=== PATIENT | male | born 1980 | race Caucasian/White ===

== ENCOUNTER 2025-01-24 10:51 | Outpatient (CLI) | payer BC, SELFPAY | END 2025-01-24 10:52 | disposition home or self-care (01) | LOC: AMB 01-27 08:39 | PROVIDERS: PCP Surgery; Visit Provider Family Medicine | DX: R45.851 Suicidal ideations (principal) | CPT/HCPCS: A0425; A0429 ==

== ENCOUNTER 2025-01-24 11:07 | Emergency (ER) | payer BC, SELFPAY ==
--- NOTE | 2025-01-24 11:08 | ED.GENADULT ---
HPI - General Adult General Date Seen: 01/24/25 Chief complaint: Psychiatric Problem/Disorder Stated complaint: ems Time Seen by Provider: 01/24/25 11:08 History of Present Illness HPI narrative: 44 yo M Brought to the ER today by EMS for alcohol intoxication and suicidal ideation. Report from EMS is that he lives here in [place]. He called 911 this morning saying that he was suicidal with a plan to cut his throat with his knife. He also told EMS that he is a long-time alcoholic and that he was drinking overnight ( whiskey). EMS reports that he came with them voluntarily and has been cooperative in route. Stable vital signs. History from the patient is that he has a long history of alcohol abuse. 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 He says he never really had a prolonged period of sobriety. It sounds like he drinks fairly heavily, roughly a bottle of whiskey every day or so. He does have a close relationship with his mother and father, but has no other close friends or family. He lives in [place]. They live in [place]. he says he talks to them, frequently but cannot tell me how often frequently means. he says he does not currently have a job. He had last had a job about 2 years ago. He apparently used to work here at [facility] [employer] and then was fired. He says he actually had a lawsuit against the hospital, but then goes on to say that he has nothing bad say about [facility] [employer]. He says he just feels like he has no direction in his life. He realizes he is 44 years old. He has been thinking about suicide for a while. He has apparently been close to cutting himself with a knife in the past, years ago, but has never actually broken the skin. He has been thinking about suicide with a knife lately, in particular this morning. He denies any other recent self-harm or ingestion. He has not done anything to hurt himself yet but he thought he was going to so he called 911. When I asked him, the specifically, what he was hoping he can get, he says that he just wants help. . When we discussed the potential for inpatient mental health admission he says he is not sure he wants that. When we discussed potential inpatient alcohol treatment, he says he is not sure he wants that either. Ultimately though he is agreeable to stay here in the ER for evaluation on a voluntary basis. He has never been hospitalized for mental health for other reasons. He does not have a counselor or therapist. He does not have a psychiatrist. His primary care provider is Dr. Cloud at the [facility] and he is on medications, including sertraline. I am not able to get from the patient whether not he has been recently taking his meds. Per records from [facility] past medical history includes hypertension, tobacco abuse, GERD. meds include famotidine, Hyzaar, rosuvastatin, sertraline. Patient denies any previous mention of liver trouble or cirrhosis. When I review his lab results it does not look like he has ever had LFTs measured. He did have hepatitis viral serologies that were negative. Related Data Home Medications ?Medication ?Instructions ?Recorded ?Confirmed famotidine 40 mg tablet 40 mg PO DAILY 01/24/25 01/24/25 losartan 100 1 tab PO DAILY 01/24/25 01/24/25 mg-hydrochlorothiazide 25 mg tablet rosuvastatin 20 mg tablet 20 mg PO QPM 01/24/25 01/24/25 sertraline 50 mg tablet 50 mg PO DAILY 01/24/25 01/24/25 Allergies Allergy/AdvReac Type Severity Reaction Status Date / Time No Known Drug Allergies Allergy Verified 01/24/25 11:34 [facility] Social History Smoking Status: Current every day smoker How many standard drinks containing alcohol do you have on a typical day: 10 or more AUDIT-C Alcohol total score: 4 Non-prescribed substance use: denies use Exam Narrative: Exam Narrative: Constitutional: Appears well-developed and well-nourished. Alert. Conversant But speech is mildly slurred and often times he gets off track. He seems to be acting a little bit intoxicated.. Non toxic. HENT: Head: Atraumatic. Nose: Nose normal. Mouth/Throat: Oral mucosa is clear and moist. no trismus. Pharynx normal. Tonsils symmetric. No tonsillar enlargement, erythema, or exudate. Eyes: Conjunctivae normal. EOM normal. Pupils equal, round, and reactive to light. No scleral icterus. Neck: Normal range of motion. Neck supple. No tracheal deviation present. Cardiovascular: Normal rate, regular rhythm. No gallop. No friction rub. No murmur heard. Symmetric radial artery pulses Pulmonary/Chest: Effort normal. No stridor. No respiratory distress. No wheezes. No rales. No rhonchi . No tenderness. Abdominal: Soft. Bowel sounds normal. No distension. No mass. No hepatomegaly.No tenderness. No rebound. No guarding. Musculoskeletal: RUE: Normal range of motion. No tenderness. No deformity LUE: Normal range of motion. No tenderness. No deformity RLE: Normal range of motion. No edema. No tenderness. No deformity LLE: Normal range of motion. No edema. No tenderness. No deformity Neurological: Alert and oriented to person, place, and Date. Normal strength. CN II-VII intact. No sensory deficit. GCS eye subscore is 4. GCS verbal subscore is 5. GCS motor subscore is 6. Normal coordination no focal deficits. Skin: Skin is warm and dry. No rash noted. No pallor. Normal capillary refill. Psychiatric: See HPI. Flat affect. Endorses suicidal ideation with a plan to cut himself with a knife. Endorses longstanding heavy alcohol use. It sounds like his mental health is affecting his quality life since he does not currently have a job and does not have any close friends or family outside of his parents. He has been pretty depressed for a long time, he says. He denies other drugs of recreation. Const: Vital Signs, click to edit/add: Vital Signs - 24 hr 01/24/25 11:30 Temperature 98.1 F Pulse Rate [Pulse Oximeter] 94 Respiratory Rate 18 Blood Pressure [Ri ght Upper Arm] 150/105 H Pulse Oximetry 97 Oxygen Delivery Me thod Room Air Course Vital Signs Vital signs: Initial Vital Signs Temperature 98.1 F 01/24/25 11:30 Temperature Source Temporal Artery Scan 01/24/25 11:30 Pulse Rate 94 01/24/25 11:30 Respiratory Rate 18 01/24/25 11:30 Blood Pressure 150/105 H 01/24/25 11:30 Blood Pressure Mean 120 H 01/24/25 11:30 Blood Pressure Position Semi-Fowlers 01/24/25 11:30 Pulse Oximetry 97 01/24/25 11:30 Oxygen Delivery Method Room Air 01/24/25 11:30 Vital Signs Temperature 98.1 F 01/24/25 11:30 Pulse Rate 94 01/24/25 11:30 Respiratory Rate 18 01/24/25 11:30 Blood Pressure 150/105 H 01/24/25 11:30 Pulse Oximetry 97 01/24/25 11:30 Oxygen Delivery Method Room Air 01/24/25 11:30 Temperature 98.1 F 01/24/25 11:30 Pulse Rate 94 01/24/25 11:30 Respiratory Rate 18 01/24/25 11:30 Blood Pressure 150/105 H 01/24/25 11:30 Pulse Oximetry 97 01/24/25 11:30 Oxygen Delivery Method Room Air 01/24/25 11:30 Medications Administered Medications: Generic Name Dose Route Start Last Admin Trade Name Freq PRN Reason Stop Dose Admin Magnesium Oxide 400 mg 01/24/25 21:00 01/24/25 13:52 Magnesium Oxide 400 Mg Tablet PO 01/24/25 21:01 400 mg ONCE ONE Administration Discontinued Medications Generic Name Dose Route Start Last Admin Trade Name Freq PRN Reason Stop Dose Admin Folic Acid 1 mg 01/24/25 13:38 01/24/25 13:47 Folic Acid 1 Mg Tablet PO 01/24/25 13:39 1 mg ONCE ONE Administration Thiamine HCl 100 mg 01/24/25 13:38 01/24/25 13:47 Thiamine 100 Mg Tablet PO 01/24/25 13:39 100 mg ONCE ONE Administration Medical Decision Making MDM Narrative Medical decision making narrative: 44-year-old male presenting to the ER today after he called 911 with concern that he was feeling suicidal with a plan to cut his throat and also because he is drinking too much. 1. Alcohol abuse. Reports a longstanding pattern of heavy, daily alcohol use ongoing for a couple of years at least. It sounds like he has never really been through treatment or had any prolonged period of sobriety since about 2003. clinical signs of alcohol intoxication are confirmed with blood alcohol level of 0.34 upon arrival. He certainly met criteria for hold, but was voluntarily remaining here in the ER for monitoring and reassessments. He was monitored here in the ER for several hours and had gradual improvement in his signs of alcohol intoxication. Slurred speech resolved. Gait was steady. He was reassessed and was clinically sober by about 4:00 p.m.. Based on number of hours since his blood alcohol level was 0.34 I suspect that his blood alcohol level is probably between 0.1 and 0.2, despite the fact that he is clinically sober based on bedside examination and conversation. I think clinical sobriety with an estimated blood alcohol level still above 0.10 suggest that he probably has chronic alcohol consumption and heavy chronic alcohol misuse. He is not displaying any signs of agitation, tremulousness, tachycardia or alcohol withdrawal. He became clinically sober and therefore assessable from a mental standpoint. See below (5) Drug screen negative for other drugs of abuse. This correlates with the patient's provided history 2. He denies any previous diagnosis of cirrhosis or liver disease. LFT showed normal bilirubin but do show abnormal transaminases in a 2-1 AST: ALT ratio which could be consistent with alcoholic hepatitis. no bedside exam findings of jaundice, ascites, spider angiomata or other stigmata of chronic alcohol abuse or liver disease. that this point I would not think he requires hospitalization for his liver function tests but he will require outpatient follow-up in clinic within a couple of weeks after he is able to achieve and maintain sobriety for repeat liver function testing. He denies any intentional overdose and slit sleep and Tylenol levels are undetectable. Based on presentation I have low suspicion for other causes of LFT abnormality such as viral hepatitis, toxic hepatitis, cholecystitis. He is not having any abdominal pain to suggest choledocholithiasis or pancreatitis. 3. Kidney function and electrolytes generally reassuring safer hypo magnesemia. Will supplement with oral magnesium oxide, 1st dose given here in the ER 4. CBC shows mild leukopenia likely related to vitamin deficiency from chronic alcohol abuse. Thiamin and folic acid administered here in the ER. He is not showing signs of confusion or Wernicke encephalopathy. platelet count normal. Hemoglobin normal. 5. he initially was endorsing suicidal ideation with a ongoing plan to cut himself. Re-evaluation after was clinically sober showed reversal in those suicidal thoughts. He said multiple times that when he drinks he gets ?dark thoughts? but now that he is sober he says he is not suicidal and does not want hurt himself. He does not want any inpatient mental health treatment or otherwise outpatient mental health treatment. He was assessed by [facility]. They agree that the patient is clinically sober and assessable. [facility] confirms that he is denying any active suicidal, homicidal ideation. No signs of paranoia or psychosis. No evidence that he is attending to hallucinations. [facility] feels that he does not meet criteria for inpatient mental health treatment and that he is not holdable. I agree that he does not meet criteria to hold him to force immediate inpatient mental health treatment. I offered to look for potential voluntary inpatient beds for him (which may be tricky sense of taryn says he does not even meet criteria for involuntary admission), but he is refusing offer of voluntary inpatient mental health care. I do think he probably has some chronic untreated mental health problems such as depression and/or anxiety. Would recommend outpatient follow-up for those. He declines any additional resources. Although he is no longer suicidal or posing an active threat to his own health and safety, and is therefore no longer holdable, I still have significant concerned about his pattern of heavy alcohol misuse and alcoholism. I think alcohol abuse is probably his biggest problem. I recommend that he allow us to help arrange transfer to detox so he can get through the next couple of days of sobriety and be monitored and treated for potential alcohol withdrawal. We had a thoughtful and amanda discussion about his alcohol abuse. He recognizes a problem. He understands that his liver functions are abnormal and that he could be in jeopardy of developing chronic liver damage if he continues to drink. Nonetheless he politely but firmly and consistently declines to accept my recommendation for detox. He insists that he wants to go home. He is requesting discharge as soon as possible. I discussed with him that I do not think he is likely to succeed in remaining sober if he discharges home. Unless he insists on discharge. He does not want me to call his family. He does not want to call them for a ride. He intends to walk home from the hospital. Therefore I am forced to discharge him from the hospital at this point. I recommended outpatient follow-up in the [facility] within 7-10 days for repeat LFTs. He is invited to return to the ER any time if he changes his mind. Lab Data Labs: Lab Results 01/24/25 01/24/25 Range/Units 11:45 12:00 WBC 3.86 L (4.50-11.00) K/uL RBC 4.38 (4.30-5.90) m/uL Hgb 14.0 (13.5-17.5) gm/dL Hct 40.6 (37.0-53.0) % MCV 93 (80-100) fL MCH 32 (26-34) pg MCHC 35 (32-36) gm/dL RDW Coeff of Jessy 14.6 (11.5-15.5) % Plt Count 275 (140-440) K/uL Neut % (Auto) 40.1 L (42.0-72.0) % Lymph % (Auto) 44.6 H (20-44) % Logan % (Auto) 9.1 (0.0-11.0) % Eos % (Auto) 4.4 (0.0-7.0) % Baso % (Auto) 1.3 (0.0-3.0) % Neut # (Auto) 1.50 L (1.7-7.0) K/uL Lymph # (Auto) 1.70 (0.90-2.90) K/uL Logan # (Auto) 0.40 (0.00-0.90) K/UL Eos # (Auto) 0.20 (0.00-0.50) K/uL Baso # (Auto) 0.10 (0.00-0.30) K/uL Abs Immat Gran (auto) 0.00 (0.00-0.30) K/uL Imm/Tot Granulo (auto) 0.5 % Sodium 143 (135-149) mmol/L Potassium 3.8 (3.6-5.1) mmol/L Chloride 103 (96-114) mmol/L Carbon Dioxide 25 (20-32) mmol/L Anion Gap 15 (7-15) mEq/L BUN 10 (5-24) mg/dL Creatinine 0.9 (0.5-1.5) mg/dL Estimated Creat Clear 96.91 Estimated GFR 107 ml/min Glucose 147 H (60-115) mg/dL Calcium 9.7 (8.4-10.6) mg/dL Magnesium 1.3 L (1.5-2.6) mg/dL Total Bilirubin 1.5 (0.1-1.5) mg/dL AST 710 H (12-35) U/L ALT 441 H (4-50) U/L Alkaline Phosphatase 95 (40-150) U/L Total Protein 8.4 H (6.0-8.3) g/dL Albumin 5.3 H (3.3-5.0) g/dL Salicylates < 1.0 L (1.0-10) mg/dL Urine Opiates Screen Negative (Negative) Ur Oxycodone Screen Negative (Negative) Urine Methadone Screen Negative (Negative) Acetaminophen < 10.0 (10.0-30.0) ug/mL Ur Barbiturates Screen Negative (Negative) U Tricyclic Antidepress Negative (Negative) Ur Phencyclidine Scrn Negative (Negative) Ur Amphetamines Screen Negative (Negative) U Methamphetamines Scrn Negative (Negative) U Benzodiazepines Scrn Negative (Negative) Urine Cocaine Screen Negative (Negative) U Marijuana (THC) Screen Negative (Negative) Ur Drug Screen Comment See Note Ethyl Alcohol 0.34 H* (0.01-0.03) % SARS-CoV-2 (PCR) Negative SARS-CoV-2 (Negative) Influenza Type A (PCR) Negative PCR FLU A (Negative) Influenza Type B (PCR) Negative PCR FLU B (Negative) ECG Data Attestation: I personally reviewed and interpreted this ECG as follows: Interpretation: Normal sinus rhythm Rate: 90 PA: 150 QRS axis: normal axis. ST segment/T wave: No ST segment elevation or depression. QTc: 442 Discharge Plan Discharge Clinical Impression: Alcohol abuse, Suicidal ideations, Hypomagnesemia, Abnormal LFTs Patient Disposition: Home, Self-Care Condition: Stable Instructions: Abuse of Alcohol (ED), Help Prevent Suicide (ED) Additional Instructions: I recommend that you go for inpatient alcohol treatment today, but you are refusing. As we discussed, you can come back to the ER any time if you change your mind. Please come back to the ER right away if you have any more thoughts of suicide or self-harm, or if you develop yellow skin (jaundice) or have any other worries. Please do not drink alcohol anymore. Your liver blood tests are not normal and I am concerned that ongoing alcohol consumption can lead to permanent liver damage. Please recheck with your regular doctor within 7-10 days to have a follow-up visit and repeat liver blood tests. Prescriptions: No Action famotidine 40 mg tablet 40 mg PO DAILY losartan-hydrochlorothiazide 100-25 mg tablet 1 tab PO DAILY sertraline 50 mg tablet 50 mg PO DAILY rosuvastatin 20 mg tablet 20 mg PO QPM Follow Up/Referrals: Provider,Not a Local [Non-Staff] - Stand Alone Forms: Spectral Image Info Instructions
--- OUTSIDE RECORDS SUMMARY | 2025-01-24 11:10 | XMS_ITS | Clinical Summary ---
Author Organization [facility] s & [facility] Address [address] [place] [address] Care Team Providers Care It Architecture Consultant Name Role Phone González Cloud MD Primary Care Provider +1- [phone] Allergies No known active allergies Medications losartan-hydrochlo rothiazide, 50-12.5 mg, (HYZAAR) 50-12.5 mg tabletIndications: Hypertension, unspecified type Take 1 Tablet by mouth once daily. 90 Tablet 3 04/07/20 23 Active sertraline (ZOLOFT) 50 mg tabletIndications: Depression, major, single episode, moderate (HC) Take 1 Tablet (50 mg) by mouth once daily. 90 Tablet 3 02/08/20 24 Active losartan-hydrochlo rothiazide (HYZAAR) 100-25 mg tabletIndications: Hypertension, unspecified type Take 1 Tablet by mouth once daily. 90 Tablet 3 02/08/20 24 Active famotidine (PEPCID) 40 mg tabletIndications: Chronic GERD TAKE ONE TABLET BY MOUTH ONCE EVERY DAY 90 Tablet 3 02/20/20 24 Active rosuvastatin 20 mg tabletIndications: Mixed hyperlipidemia,Hyp erlipidemia, unspecified hyperlipidemia type Take 1 Tablet (20 mg) by mouth at bedtime. 90 Tablet 01/24/20 25 Active rosuvastatin (CRESTOR) 20 mg tabletIndications: Mixed hyperlipidemia,Hyp erlipidemia, unspecified hyperlipidemia type Take 1 Tablet (20 mg) by mouth at bedtime. 90 Tablet 1 02/08/20 24 025 Discontinued Active Problems Problem Noted Date Diagnosed Date Tobacco dependence 06/14/2021 Hypertension Chronic GERD Encounters Date Type Department Care Team Description 01/22/2025 Refill [facility] [place] [address] [address] González Cloud MD Refill Request (Rosuvastatin) from Last 3 Months Immunizations Immunization Administration Dates Next Due COVID-19 vaccine (Nina-J&J) PF, MDV COVID-19 vaccine (Moderna 100mcg/0.5mL) PF, MDV 10/11/2021 COVID-19 vaccine (Moderna 50 mcg/0.5mL) 12YO+ BIVALENT PF, MDV 12/21/2022,09/16/2022 Influenza, IIV3 (Age 6-35 mos) 08/03/2020 Influenza, IIV4 07/29/2022 Influenza, IIV4 (=>6mos) MDV 07/14/2021 Pneumococcal Conj 20-valent (Prevnar 20) 023 Tdap 02/15/2022 Family History Medical History Relation Name Comments Hypertension Brother Relation Name Status Comments Brother Alive Father Alive Mother Alive Social History Tobacco Use Types Packs/Day Years Used Date Smoking Tobacco: Every Day Cigarettes 0.3 15.5 Started: 06/29/2009; Last attempted to quit: 06/29/2019 Smokeless Tobacco: Never Tobacco Cessation:Ready to Q uit: Not Asked; Counseling Given: Not Answered Comments:2 cigs daily Alcohol Use Standard Drinks/Week Comments Yes 14 (1 standard drink = 0.6 oz pu re alcohol) 1-2 daily PHQ-2 Answer Date Recorded PHQ-2 TOTAL SCORE 2 02/08/2024 Social Connections Answer Date Recorded Do you often feel lonely or isolated from those around you? 4 01/01/2024 Alcohol Use Answer Date Recorded How often do you have a drink containing alcohol ? 4 01/02/2024 How many drinks containing a lcohol do you have on a typical day when you are drinking? 1 01/02/2024 How often do you have five or more drinks on one occasion? 3 01/02/2024 Financial Resource Strain Answer Date R ecorded Difficulty of Paying Living Expenses 3 01/01/2024 Difficulty of Paying Living Expenses Not on file 01/01/2024 Food Insecurity Answer Date Recorded Do you worry your food will run out before you are able to buy more? 1 01/01/2024 Transportation Needs Answer Date Record ed Does lack of transportation keep you from medica l appointments? 1 01/01/2024 Does lack of transportation keep you from work, meetings or getting things that you need? 1 01/01/2024 Housing Stability Answer Date Recorded What is your housing situation today? 1 01/01/2024 Utilities Answer Date Recorded Do you have trouble paying f or utilities (for example, heat, electricity, water, phone)? 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 Gender Identity Not on file Sexual Orientation Not on file Obstetrics History Last Filed Vital Signs Vital Sign Reading Time Taken Comments Blood Pressure 153/103 02/08/2024 12:50 PM CDT Pulse 84 02/08/2024 12:50 PM CDT Temperature 37 C (98.6 F) 05/10/2023 2:04 PM CDT Respiratory Rate 18 05/10/2023 2:04 PM CDT Oxygen Saturation 98% 02/08/2024 12:48 PM CDT Inhaled Oxygen Concentration - - Weight 94.6 kg (208 lb 8 oz) 02/08/2024 12:48 PM CDT Height 170.4 cm (5' 7.09) 04/07/2023 1:03 PM CD T Body Mass Index 32.57 04/07/2023 1:03 PM CDT Plan of Treatment Health Maintenance Due Date Last Done Comments BMI (ht and wt on same day) for age 18+ 04/07/2024 04/07/2023, 02/15/2022, 06/14/2021, Additional history exists COVID-19 vaccine series ( season) 2024 12/21/2022, 09/16/2022, 10/11/2021, Additional history exists Colonoscopy through age 75 2024 Depression screening for age 12+ 02/07/2025 02/08/2024, 01/03/2024, 01/02/2024, Additional history exists Influenza Vaccine (Season Ended) 2025 07/29/2022, 07/14/2021, 08/03/2020 Lipids for age 45-75 01/01/2029 01/02/2024, 04/07/2023, 06/14/2021, Additional history exists Tetanus booster 02/16/2032 02/15/2022 Tdap Completed 02/15/2022 HIV for age 15-65 Completed 04/07/2023 Hepatitis C screening for ag e 18-79 Completed 04/07/2023 Pneumococcal series for age 6-49 Completed 04/07/20 Procedures Procedure Name Priority Date/Time Associated Diagnosis Comments LIPID PANEL Routine 01/02/2024 4:30 PM CDT Mixed hyperlipidemia LC HIV-1/O/2, 4TH GENERATION Routine 04/07/2023 3:07 PM CDT Screening for HIV (human immunodeficiency virus) LC HCV ANTIBODY RFX TO QUANT PCR Routine 04/07/2023 3:07 PM CDT Need for hepatitis C screening test from Last 3 Months or Most Recently Relevant to Health Maintenance Results * (ABNORMAL) LIPID PANEL (01/02/2024 4:30 PM CDT) [facility] CHOLESTEROL,TOTAL 154 100 - 199 mg/dL 01/03/2024 2:30 PM CDT [facility] Comment: Cholesterol, Total Reference Ranges Desirable <200 mg/dL Borderline 200-239 mg/dL High >=240 mg/dL TRIGLYCERIDES 153(H) <150 mg/dL 01/03/2024 2:30 PM CDT [facility] HDL CHOLESTEROL 58 >40 mg/dL 2:30 PM CDT [facility] NON-HDL CHOLESTEROL 96 <145 mg/dl 01/03/2024 2:30 PM CDT [facility] CHOL/HDL RATIO 2.66 <4.50 01/03/2024 2:30 PM CDT [facility] LDL CHOLESTEROL 65 <=130 mg/dL 01/03/2024 2:30 PM CDT [facility] VLDL CHOLESTEROL 31(H) <=30 mg/dL 01/03/2024 2:30 PM CDT [facility] PROVIDER ORDERED STATUS RANDOM 01/03/2024 2:30 PM CDT [facility] Blood BLOOD SPECIMEN / Unknown Venipuncture / Unknown 01/02/2024 4:30 PM CDT 01/02/2024 4:31 PM CDT us González Cloud MD CHEMISTRY Final Resu lt [facility] [address] [place] [address], [place] * LC HCV ANTIBODY RFX TO QUANT PCR (04/07/2023 3:07 PM CDT) HCV Ab Non Reactive Non Reactive 04/12/2023 3:08 AM CDT [facility] ([facility]) Blood BLOOD SPECIMEN / Unknown Venipuncture / Unknown 04/07/2023 3:07 PM CDT 04/07/2023 3:09 PM CDT Narrative [facility] ([facility]) - 04/12/2023 3:08 AM CDT Performed at: [address] [place] [id number] Warp Knitter Helper: Corey Keys MD, Phone: [phone] us Caterina Hayes DO LABORATORY Final Result Performing Organization Address City/[facility]/ZIP Co de Phone Number [facility] ([facility]) [facility] [place] [address], [place] * LC HIV-1/O/2, 4TH GENERATION (04/07/2023 3:07 PM CDT) HIV Scr 4th Gen Non Reactive Non Reactive 04/12/2023 1:[address] [facility] (CET) Comment: HIV Negative HIV-1/HIV-2 antibodies and HIV-1 p24 antigen were NOT detected. There is no laboratory evidence of HIV infection. Blood BLOOD SPECIMEN / Unknown Venipuncture / Unknown 04/07/2023 3:07 PM CDT 04/07/2023 3:09 PM CDT N[facility]ative [facility] - 04/12/2023 1:08 AM CDT Performed at: [address] [id number] Warp Knitter Helper: Corey Keys MD, Phone: [phone] us Sabrinaemerson Staufferzane DO LABORATORY Final Result [facility] (CET) [address] [place] [address], [place] from Last 3 Months or Most Recently Relevant to Health Maintenance [facility] ESIS WORKERS COMP on file Care Teams It Architecture Consultant Relationship Specialty Start Date End Date González Cloud MD [address] [place] [address] PCP - General Family Practice 08/24/15
[2025-01-24 11:30] VITALS: BP 150/105; PULSE 94; RESP 18; TEMP 36.7; O2SAT 97; BMI 31.0
[2025-01-24 11:54] LABS: Basophils Percent Auto 1.3 % (0.0-3.0); Eosinophils Percent Auto 4.4 % (0.0-7.0); Hematocrit 40.6 % (37.0-53.0); Immature Granulocytes Pct Auto 0.5 %; Lymphocytes Percent Auto 44.6 % (20-44); Mean Corpuscular HGB Conc 35 gm/dL (32-36); Mean Corpuscular Hemoglobin 32 pg (26-34); Mean Corpuscular Volume 93 fL (80-100); Monocytes Percent Auto 9.1 % (0.0-11.0); Neutrophils Percent Auto 40.1 % (42.0-72.0); Platelet Count* 275 K/uL (140-440); RDW Coefficient of Variation % 14.6 % (11.5-15.5); Red Blood Count 4.38 m/uL (4.30-5.90); White Blood Count* 3.86 K/uL (4.50-11.00)
[2025-01-24 11:57] LABS: Slide Review Reflex No
[2025-01-24 12:07] LABS: Albumin* 5.3 g/dL (3.3-5.0); Chloride* 103 mmol/L (96-114)
[2025-01-24 12:08] LABS: Potassium* 3.8 mmol/L (3.6-5.1); Sodium* 143 mmol/L (135-149)
[2025-01-24 12:10] LABS: Alanine Aminotransferase* 441 U/L (4-50); Alkaline Phosphatase* 95 U/L (40-150); Anion Gap 15 mEq/L (7-15); Aspartate Amino Transferase* 710 U/L (12-35); Bilirubin Total* 1.5 mg/dL (0.1-1.5); Blood Urea Nitrogen* 10 mg/dL (5-24); Calcium* 9.7 mg/dL (8.4-10.6); Carbon Dioxide* 25 mmol/L (20-32); Creatinine* 0.9 mg/dL (0.5-1.5); Est. Creatinine Clearance* 96.91; Estimated Glomerular Filt Rate 107 ml/min; Glucose* 147 mg/dL (60-115); Total Protein* 8.4 g/dL (6.0-8.3)
[2025-01-24 12:11] LABS: Magnesium* 1.3 mg/dL (1.5-2.6)
[2025-01-24 12:19] LABS: Acetaminophen* < 10.0 ug/mL (10.0-30.0); Salicylate* < 1.0 mg/dL (1.0-10)
[2025-01-24 12:20] LABS: Ethanol* 0.34 % (0.01-0.03)
[2025-01-24 12:30] LABS: Amphetamine Screen Urine Negative (Negative); Barbiturate Screen Urine Negative (Negative); Benzodiazepines Screen Urine Negative (Negative); Cannabinoid Screen Urine Negative (Negative); Cocaine Screen Urine Negative (Negative); Methadone Screen Urine Negative (Negative); Methamphetamines Screen Urine Negative (Negative); Opiate Screen Urine Negative (Negative); Oxycodone Screen Urine Negative (Negative); Phencyclidine Screen Urine Negative (Negative); Tricyclic Antidepressant Urine Negative (Negative)
--- OUTSIDE RECORDS SUMMARY | 2025-01-24 12:39 | XMS_ITS | Clinical Summary ---
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 Gender Identity Not on file Sexual Orientation [...] (ABNORMAL) LIPID PANEL (01/02/2024 4:30 PM CDT) [facility] CHOLESTEROL,TOTAL 154 100 - 199 mg/dL 01/03/2024 2:30 PM CDT [facility] Comment: Cholesterol, Total Reference Ranges Desirable <200 mg/dL Borderline 200-239 mg/dL High >=240 mg/dL TRIGLYCERIDES 153(H) <150 mg/dL 01/03/2024 2:30 PM CDT [facility] HDL CHOLESTEROL 58 >40 mg/dL 2:30 PM CDT [facility] NON-HDL CHOLESTEROL 96 <145 mg/dl 01/03/2024 2:30 PM CDT [facility] CHOL/HDL RATIO 2.66 <4.50 01/03/2024 2:30 PM CDT [facility] LDL CHOLESTEROL 65 <=130 mg/dL 01/03/2024 2:30 PM CDT [facility] VLDL CHOLESTEROL 31(H) <=30 mg/dL 01/03/2024 2:30 PM CDT [facility] PROVIDER ORDERED STATUS RANDOM 01/03/2024 2:30 PM CDT [facility] Blood BLOOD SPECIMEN / Unknown Venipuncture / Unknown 01/02/2024 4:30 PM CDT 01/02/2024 4:31 PM CDT us González Cloud MD CHEMISTRY Final Resu lt [facility] [address] [place] [address], [place] * LC HCV ANTIBODY RFX TO QUANT PCR (04/07/2023 3:07 PM CDT) HCV Ab Non Reactive Non Reactive 04/12/2023 3:08 AM CDT [facility] (CET) Blood BLOOD SPECIMEN / Unknown Venipuncture / Unknown 04/07/2023 3:07 PM CDT 04/07/2023 3:09 PM CDT Narrative [facility] ([facility]ET) - 04/12/2023 3:08 AM CDT Performed at: [address] [place] [id number] Commercial Journeyman Electrician: Corey Keys MD, Phone: [phone] us Caterina Hayes DO LABORATORY Final Result Performing Organization Address City/[facility]/ZIP Co de Phone Number [facility] ([facility]) [facility] [place] [address], [place] * LC HIV-1/O/2, 4TH GENERATION (04/07/2023 3:07 PM CDT) HIV Scr 4th Gen Non Reactive Non Reactive 04/12/2023 1:08 AM CDT [facility] ([facility]) Comment: HIV Negative HIV-1/HIV-2 antibodies and HIV-1 p24 antigen were NOT detected. There is no laboratory evidence of HIV infection. Blood BLOOD SPECIMEN / Unknown Venipuncture / Unknown 04/07/2023 3:07 PM CDT 04/07/2023 3:09 PM CDT Narrative [facility] - 04/12/2023 1:08 AM CDT Performed at: [address] [id number] Commercial Journeyman Electrician: Corey Keys MD, Phone: [phone] us Sabrinaemerson Staufferzane DO LABORATORY Final Result [facility] ([facility]) [address] [place] [address], [place] from Last 3 Months or Most Recently Relevant to Health Maintenance [facility] ESIS WORKERS COMP on file Care Teams Field Gauger Relationship Specialty Start Date End Date González Cloud MD [address] [place] [address] PCP - General Family Practice 08/24/15
[2025-01-24 13:00] LABS: PCR FLU A Negative PCR FLU A (Negative); PCR FLU B Negative PCR FLU B (Negative); SARS PCR* Negative SARS-CoV-2 (Negative)
[2025-01-24] MEDS: FOLIC ACID 1 MG TABLET PO (13:47)
[2025-01-24] MEDS: THIAMINE 100 MG TABLET PO (13:47)
[2025-01-24] MEDS: MAGNESIUM OXIDE 400 MG TABLET PO (13:52)
== END 2025-01-24 16:59 | disposition home or self-care (01) ==
PROVIDERS: Emergency Provider Emergency Medicine; PCP Surgery
DX: F10.129 Alcohol abuse with intoxication, unspecified (principal); R45.851 Suicidal ideations; E83.42 Hypomagnesemia; R94.5 Abnormal results of liver function studies
CPT/HCPCS: 36415; 80053; 80143; 80179; 80306; 82077; 83735; 85025; 87631; 93005; 99284; 99285; A9270

== ENCOUNTER 2025-06-17 16:03 | Outpatient (CLI) | payer BC, SELFPAY | END 2025-06-17 16:04 | disposition home or self-care (01) | LOC: AMB 06-19 14:05 | PROVIDERS: PCP Surgery; Visit Provider Emergency Medicine | DX: R45.851 Suicidal ideations (principal) | CPT/HCPCS: A0425; A0427 ==

== ENCOUNTER 2025-06-28 12:58 | Outpatient (CLI) | payer BC, SELFPAY | END 2025-06-28 12:59 | disposition home or self-care (01) | LOC: AMB 06-30 13:14 | PROVIDERS: PCP Surgery; Visit Provider Family Medicine | DX: R45.851 Suicidal ideations (principal) | CPT/HCPCS: A0998 ==

== ENCOUNTER 2025-06-28 21:59 | Outpatient (CLI) | payer BC, SELFPAY | END 2025-06-28 22:00 | disposition home or self-care (01) | LOC: AMB 06-30 14:04 | PROVIDERS: PCP Surgery; Visit Provider Emergency Medicine | DX: R45.851 Suicidal ideations (principal) | CPT/HCPCS: A0425; A0427 ==

== ENCOUNTER 2025-06-28 22:55 | Emergency (ER) | payer BC, SELFPAY ==
--- OUTSIDE RECORDS SUMMARY | 2025-06-28 22:57 | XMS_ITS | Clinical Summary ---
Author Organization [employer] Address [address] [place] [id number] Care Team Providers Care Strategy Manager Name Role Phone González Cloud MD Primary Care Provider [phone] Allergies No known active allergies Medications rosuvastatin (CRESTOR) 20 mg tabletIndications :Mixed hyperlipidemia,Hy perlipidemia, unspecified hyperlipidemia type TAKE ONE TABLET BY MOUTH EVERY DAY AT BEDTIME 90 Tablet 06/02/20 25 Active famotidine (PEPCID) 40 mg tabletIndications :Chronic GERD TAKE ONE TABLET BY MOUTH ONCE EVERY DAY . 90 Tablet 06/02/20 25 Active losartan-hydrochl orothiazide (HYZAAR) 100-25 mg tabletIndications :Hypertension, unspecified type TAKE ONE TABLET BY MOUTH ONCE EVERY DAY 90 Tablet 06/02/20 25 Active sertraline (ZOLOFT) 100 mg tabletIndications :Depression, major, single episode, moderate (HC) Take 1 Tablet (100 mg) by mouth once daily. 90 Tablet 1 06/24/20 25 Active losartan-hydrochl orothiazide, 50-12.5 mg, (HYZAAR) 50-12.5 mg tabletIndications :Hypertension, unspecified type Take 1 Tablet by mouth once daily. 90 Tablet 3 04/07/20 23 025 Discontinued(*M ed complete/Regime n complete/Level of care change) sertraline (ZOLOFT) 50 mg tabletIndications :Depression, major, single episode, moderate (HC) Take 1 Tablet (50 mg) by mouth once daily. 90 Tablet 3 02/08/20 24 025 Discontinued losartan-hydrochl orothiazide (HYZAAR) 100-25 mg tabletIndications :Hypertension, unspecified type Take 1 Tablet by mouth once daily. 90 Tablet 3 02/08/20 24 025 Discontinued famotidine (PEPCID) 40 mg tabletIndications :Chronic GERD TAKE ONE TABLET BY MOUTH ONCE EVERY DAY 90 Tablet 3 02/20/20 24 025 Discontinued rosuvastatin 20 mg tabletIndications :Mixed hyperlipidemia,Hy perlipidemia, unspecified hyperlipidemia type Take 1 Tablet (20 mg) by mouth at bedtime. 90 Tablet 01/24/20 25 025 Discontinued sertraline (ZOLOFT) 50 mg tabletIndications :Depression, major, single episode, moderate (HC) Take 1 Tablet (50 mg) by mouth once daily. 90 Tablet 06/02/20 025 Discontinued(Re order (E-cancel not sent)) Active Problems Problem Noted Date Diagnosed Date Tobacco dependence 06/14/2021 Hypertension Chronic GERD Encounters Date Type Department Care Team Description 06/24/2025 3:00 PM CDT Office Visit [facility] [address] [place] [address] Angle Burton MD Back Pain (lower back and up the sides with bruising ); Trauma (06/13); Neck Injury (stiff neck ) 06/24/2025 Travel 06/17/2025 4:45 PM CDT - 06/17/2025 11:31 PM CDT Emergency [facility] [address] [place] [address] Ajit Wallis MD Alcoholic intoxication without complication (Primary Dx); Suicidal thoughts Discharge Disposition: Home Self Care 06/17/2025 Travel 05/30/2025 Refill [facility] [address] [place] [address] González Cloud MD Refill Request (Rosuvastatin, Famotidine, Losartan-hydrochlorot hiazide, Sertraline) from Last 3 Months Immunizations Immunization Administration Dates Next Due COVID-19 vaccine (Nina-J&J) JOANNE NIELSEN COVID-19 vaccine (Moderna 100mcg/0.5mL) JOANNE NIELSEN 10/11/2021 COVID-19 vaccine (Moderna 50 mcg/0.5mL) 12YO+ [...] Date Smoking Tobacco: Every Day Cigarettes 0.3 15.9 Started: 06/29/2009; Last attempted to quit: 06/29/2019 Smokeless Tobacco: Never Tobacco Cessation:Ready to Q uit: Not Asked; Counseling Given: Not Answered Comments:2 cigs daily Alcohol Use Standard Drinks/Week Comments Yes 14 (1 standard drink = 0.6 oz pu re alcohol) 1-2 daily PHQ-2 Answer Date Recorded PHQ-2 TOTAL SCORE 1 06/24/2025 Social Connections Answer Date Recorded Do you often feel lonely or isolated from those around you? 0 06/24/2025 Alcohol Use Answer Date Recorded Frequency of Alcohol Consumption Not on file 06/24/2025 How many drinks containing a lcohol do you have on a typical day when you are drinking? 1 06/24/2025 Frequency of Binge Drinking Not on file 06/2025 Financial Resource Strain Answer Date R ecorded Difficulty of Paying Living Expenses 3 06/24/2025 Difficulty of Paying Living Expenses Not on file 06/24/2025 Food Insecurity Answer Date Recorded Do you worry your food will run out before you are able to buy more? 1 06/24/2025 Transportation Needs Answer Date Record ed Does lack of transportation keep you from medica l appointments? 1 06/24/2025 Does lack of transportation keep you from work, meetings or getting things that you need? 1 06/24/2025 Housing Stability Answer Date Recorded What is your housing situation today? 1 06/24/2025 Interpersonal Safety Answer Date Record ed Are you being hit, kicked, p ushed or yelled at (see row info)? No 06/17/2025 Interpersonal Safety Abuse 12 - 18 Not on file 06/17/2025 Interpersonal Safety Ambulatory Vulnerability No t on file 06/17/2025 Utilities Answer Date Recorded Do you have trouble paying f or utilities (for example, heat, electricity, water, phone)? 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 Gender Identity Not on file Sexual Orientation Not on file Obstetrics History Last Filed Vital Signs Vital Sign Reading Time Taken Comments Blood Pressure 125/87 06/24/2025 2:44 PM CDT Pulse 106 06/17/2025 4:56 PM CDT Temperature 37.3 C (99.1 F) 06/17/2025 4:56 PM CDT Respiratory Rate 20 06/17/2025 4:56 PM CDT Oxygen Saturation 97% 06/17/2025 4:56 PM CDT Inhaled Oxygen Concentration - - Weight 84.1 kg (185 lb 8 oz) 06/24/2025 2:44 PM CDT Height 170.2 cm (5' 7) 06/17/2025 7:58 PM CDT Body Mass Index 29.05 06/17/2025 7:58 PM CDT Plan of Treatment Upcoming Encounters Date Type Department Care Team (Late st Contact Info) Description 07/04/2025 12:45 PM CDT Office Visit [facility] [address] [place] [address] González Cloud MD [address] [place] [address] 07/25/2025 2:50 PM CDT Office Visit [facility] [address] [place] [address] González Cloud MD [address] [place] [address] Health Maintenance Due Date Last Done Comments Hepatitis B series for 19+ ( 1 of 3 - 19+ 3-dose series) 1998 HPV series for age 9-45 (1 - 3-dose SCDM series) 2006 BMI (ht and wt on same day) for age 18+ 04/07/2024 04/07/2023, 02/15/2022, 06/14/2021, Additional history exists Colonoscopy through age 75 2024 COVID-19 vaccine series (2024- season) 2025 12/21/2022, 09/16/2022, 10/11/2021, Additional history exists Influenza Vaccine (#1) 2025 , 07/14/2021, 08/03/2020 Depression screening for age 12+ 06/24/2026 06/24/2025, 02/08/2024, 01/03/2024, Additional history exists Lipids for age 45-75 01/01/2029 01/02/2024, 04/07/2023, 06/14/2021, Additional history exists Tetanus booster 02/16/2032 02/15/2022 RSV vaccine for adults or (1 - 1-dose 75+ series) 2054 HIV for age 15-65 Completed 04/07/2023 Hepatitis C screening for ag e 18-79 Completed 04/07/2023 Pneumococcal series for age 6-49 Completed 04/07/20 Procedures Procedure Name Priority Date/Time Associated Diagnosis Comments XR CHEST 1 VIEW PORTABLE STAT 06/17/2025 5:56 PM CDT LIPID PANEL Routine 01/02/2024 4:30 PM CDT Mixed hyperlipidemia LC HIV-1/O/2, 4TH GENERATION Routine 04/07/2023 3:07 PM CDT Screening for HIV (human immunodeficiency virus) LC HCV ANTIBODY RFX TO QUANT PCR Routine 04/07/2023 3:07 PM CDT Need for hepatitis C screening test from Last 3 Months or Most Recently Relevant to Health Maintenance Results * XR CHEST 1 VIEW PORTABLE (06/17/2025 5:56 PM CDT) Anatomical Region Laterality Modality HEART, THORAX, CHEST Digital Rad iography 06/17/2025 6:20 PM CDT Impressions 06/17/2025 6:20 PM CDT No acute cardiopulmonary findings. Dictated by Frances Noble MD @ 06/17/2025 6:20:12 PM (Electronically Signed) Narrative 06/17/2025 6:20 PM CDT For Patients: As a result of the Cures Act, medical imaging exams and procedure reports are released immediately into your electronic medical record. You may view this report before your referring provider. If you have questions, please contact your health care provider. INDICATION: Chest pain. TECHNIQUE: Chest 1 view. COMPARISON: None. FINDINGS: Cardiovascular: Heart size and pulmonary vasculature are within normal limits. Lungs and pleural spaces: The lungs are clear. No sign of pleural effusion. No pneumothorax identified. Bones and soft tissues: No significant findings. Procedure Note Frances Noble MD - 06/17/2025 For Patients: As a result of the Cures Act, medical imagingexams and procedure reports are released immediately into your electronicmedical record. You may view this report before your referring provider.If you have questions, please contact your health care provider. INDICATION: Chest pain. TECHNIQUE: Chest 1 view. COMPARISON: None. FINDINGS: Cardiovascular: Heart size and pulmonary vasculature are within normallimits. Lungs and pleural spaces: The lungs are clear. No sign of pleuraleffusion. No pneumothorax identified. Bones and soft tissues: No significant findings. IMPRESSION: No acute cardiopulmonary findings. Dictated by Frances Noble MD @ 06/17/2025 6:20:12 PM (Electronically Signed) Ajit Wallis MD GENERAL IMAGING [facility] al Result * (ABNORMAL) LIPID PANEL (01/02/2024 4:30 PM CDT) CHOLESTEROL,TOTAL 154 100 - 199 mg/dL 01/03/2024 2:30 PM CDT [facility] Comment: Cholesterol, Total Reference Ranges Desirable <200 mg/dL Borderline 200-239 mg/dL High >=240 mg/dL TRIGLYCERIDES 153(H) <150 mg/dL 01/03/2024 2:30 PM CDT [facility] HDL CHOLESTEROL 58 >40 mg/dL 2:30 PM CDT [facility] NON-HDL CHOLESTEROL 96 <145 mg/dl 01/03/2024 2:30 PM CDT [facility] CHOL/HDL RATIO 2.66 <4.50 01/03/2024 2:30 PM CDT [facility] LDL CHOLESTEROL 65 <=130 mg/dL 01/03/2024 2:30 PM CDT [facility] VLDL CHOLESTEROL 31(H) <=30 mg/dL 01/03/2024 2:30 PM CDT [facility] PROVIDER ORDERED STATUS RANDOM 01/03/2024 2:30 PM CDT [facility] Blood BLOOD SPECIMEN / Unknown Venipuncture / Unknown 01/02/2024 4:30 PM CDT 01/02/2024 4:31 PM CDT us González Cloud MD CHEMISTRY Final Resu lt [facility] [address] [place] [address], [place] * LC HCV ANTIBODY RFX TO QUANT PCR (04/07/2023 3:07 PM CDT) HCV Ab Non Reactive Non Reactive 04/12/2023 3:[address] [facility] ([facility]) Blood BLOOD SPECIMEN / Unknown Venipuncture / Unknown 04/07/2023 3:07 PM CDT 04/07/2023 3:09 PM CDT Narrative [facility] ([facility]) - 04/12/2023 3:08 AM CDT Performed at: [address] [place] [id number] Plug Saw Operator: Corey Keys MD, Phone: [phone] us Caterina Hayes DO LABORATORY Final Result [facility] ([facility]) [address] [place] [address], * LC HIV-1/O/2, 4TH GENERATION (04/07/2023 3:07 PM CDT) HIV Scr 4th Gen Non Reactive Non Reactive 04/12/2023 1:[address] [facility] ([facility]) Comment: HIV Negative HIV-1/HIV-2 antibodies and HIV-1 p24 antigen were NOT detected. There is no laboratory evidence of HIV infection. Blood BLOOD SPECIMEN / Unknown Venipuncture / Unknown 04/07/2023 3:07 PM CDT 04/07/2023 3:09 PM CDT Narrative [facility] ([facility]) - 04/12/2023 1:08 AM CDT Performed at: [address] [place] [id number] Plug Saw Operator: Corey Keys MD, Phone: [phone] us Caterina Hayes DO LABORATORY Final Result [facility] ([facility]) [address] [place] [address], from Last 3 Months or Most Recently Relevant to Health Maintenance Insurance [facility] [employer] [facility] [employer] COMP on file Care Teams Strategy Manager Relationship Specialty Start Date End Date González Cloud MD [address] [place] [address] PCP - General Family Practice 08/24/15
[2025-06-28 23:12] VITALS: BP 134/95; PULSE 90; RESP 14; TEMP 36.9; O2SAT 88; BMI 25.1
[2025-06-28 23:21] VITALS: O2SAT 91
[2025-06-28 23:25] VITALS: BP 145/100; PULSE 92; RESP 16; O2SAT 94
[2025-06-28 23:34] LABS: Cannabinoid Screen Urine Negative (Negative); Methamphetamines Screen Urine Negative (Negative); Tricyclic Antidepressant Urine Negative (Negative)
[2025-06-28 23:35] LABS: Hematocrit* 41.1 % (37.0-53.0); Hemoglobin* 13.8 gm/dL (13.5-17.5); Immature Granulocytes Pct Auto 1.0 %; Lymphocytes Absolute Auto 1.10 K/uL (0.90-2.90); Mean Corpuscular HGB Conc 34 gm/dL (32-36); Mean Corpuscular Hemoglobin 30 pg (26-34); Mean Corpuscular Volume 90 fL (80-100); RDW Coefficient of Variation % 12.4 % (11.5-15.5); Red Blood Count* 4.59 m/uL (4.30-5.90); White Blood Count* 2.05 K/uL (4.50-11.00)
[2025-06-28 23:36] LABS: Immature Granulocytes Abs Auto 0.00 K/uL (0.00-0.30); Slide Review Reflex No
[2025-06-28 23:42] VITALS: BP 141/103; PULSE 86; RESP 17; O2SAT 92
[2025-06-28 23:46] LABS: Chloride* 98 mmol/L (96-114); Potassium* 3.8 mmol/L (3.6-5.1); Sodium* 140 mmol/L (135-149)
[2025-06-28 23:48] LABS: Blood Urea Nitrogen* 11 mg/dL (5-24); Creatinine* 0.8 mg/dL (0.5-1.5); Est. Creatinine Clearance* 120.40; Estimated Glomerular Filt Rate 111 ml/min
[2025-06-28 23:49] LABS: Anion Gap 19 mEq/L (7-15); Calcium* 9.2 mg/dL (8.4-10.6); Carbon Dioxide* 23 mmol/L (20-32); Glucose* 175 mg/dL (60-115)
[2025-06-28 23:51] LABS: Acetaminophen* < 10.0 ug/mL (10.0-30.0); Salicylate* < 1.0 mg/dL (1.0-10)
--- NOTE | 2025-06-28 23:53 | ED.PSYCH ---
HPI - Psych General Chief Complaint: Alcohol/Intoxication Stated Complaint: Mental Health Time Seen by Provider: 06/28/25 23:53 Source: patient and EMS Mode of arrival: EMS History of Present Illness HPI Narrative: Smith is a 44-year-old male with a past medical history of alcohol use disorder who presents the emergency department from home by EMS for mental health evaluation per EMS patient called 911 twice sitting he was going to shoot himself and stated that he had a gun in his closet. EMS wanted to transfer patient to the emergency room on however patient stated he was not going to come in unless he got meds to help him relax. EMS gave patient IM medications including 5 mg of Haldol, 5 mg Versed, 2 mg diazepam, 50 mg of Benadryl. Patient reports drinking alcohol earlier today. Denies any substance use. No other history obtained at this time due to AMS. Related Data Home Medications ?Medication ?Instructions ?Recorded ?Confirmed famotidine 40 mg tablet 40 mg PO DAILY 01/24/25 01/24/25 losartan 100 1 tab PO DAILY 01/24/25 01/24/25 mg-hydrochlorothiazide 25 mg tablet rosuvastatin 20 mg tablet 20 mg PO QPM 01/24/25 01/24/25 sertraline 50 mg tablet 50 mg PO DAILY 01/24/25 01/24/25 Allergies Allergy/AdvReac Type Severity Reaction Status Date / Time No Known Drug Allergies Allergy Verified 02/19/25 09:07 Review of Systems Status of ROS: Reports: unobtainable due to mental status PFS PFS Social History (System 02/19/25 @ 09:07 by Delores Baca) Smoking Status: Current every day smoker How many standard drinks containing alcohol do you have on a typical day: 10 or more AUDIT-C Alcohol total score: 4 Non-prescribed substance use: denies use Exam Narrative: Exam Narrative: General: Afebrile, no acute distress HEENT: Normocephalic, atraumatic, conjunctiva normal. MMM Neck: non-tender, supple Cardio: regular rate. regular rhythm Resp: Normal work of breathing, no respiratory distress, lungs clear bilaterally, no wheezing, rhonchi, rales Chest/Back: no visual signs of trauma, no midline tenderness, no CVA tenderness Abdomen: soft, non distension, no tenderness, no peritoneal signs Neuro: Sleepy but arousable to verbal stimuli, moving all extremities, no focal neurological deficit MSK: no deformities. Normal range of motion Integumentary/Skin: no rash visualized, normal color Psych: normal affect, normal behavior Const: Vital Signs, click to edit/add: Vital Signs - 24 hr 06/28/25 23:12 06/28/25 23:21 06/28/25 23:25 Temperature 98.4 F Pulse Rate 92 Pulse Rate [Pulse Oximeter] 90 Respiratory Rate 14 16 Blood Pressure 145/100 H Blood Pressure [Ri ght Upper Arm] 134/95 H Pulse Oximetry 88 91 94 Oxygen Delivery Me thod Room Air Nasal Cannula Oxygen Flow Rate 2 06/28/25 23:42 06/28/25 23:56 06/29/25 00:00 Temperature Pulse Rate 86 90 Pulse Rate [Pulse Oximeter] Respiratory Rate 17 16 Blood Pressure 141/103 H Blood Pressure [Ri ght Upper Arm] Pulse Oximetry 92 89 93 Oxygen Delivery Me thod Nasal Cannula Oxygen Flow Rate 2 06/29/25 00:02 06/29/25 00:02 06/29/25 00:02 Temperature Pulse Rate 92 92 92 Pulse Rate [Pulse Oximeter] Respiratory Rate 22 22 22 Blood Pressure 136/97 H 136/97 H 136/97 H Blood Pressure [Ri ght Upper Arm] Pulse Oximetry 97 97 97 Oxygen Delivery Me thod Oxygen Flow Rate 06/29/25 00:23 06/29/25 00:42 06/29/25 01:02 Temperature Pulse Rate 89 95 103 H Pulse Rate [Pulse Oximeter] Respiratory Rate 18 20 18 Blood Pressure 122/96 H 145/133 H 131/97 H Blood Pressure [Ri ght Upper Arm] Pulse Oximetry 93 93 96 Oxygen Delivery Me thod Oxygen Flow Rate 06/29/25 02:00 06/29/25 03:43 Temperature Pulse Rate 95 Pulse Rate [Pulse Oximeter] Respiratory Rate 19 16 Blood Pressure Blood Pressure [Ri ght Upper Arm] Pulse Oximetry 94 96 Oxygen Delivery Me thod Room Air Oxygen Flow Rate Course Vital Signs Vital signs: Initial Vital Signs Temperature 98.4 F 06/28/25 23:12 Temperature Source Temporal Artery Scan 06/28/25 23:12 Pulse Rate 90 06/28/25 23:12 Respiratory Rate 14 06/28/25 23:12 Blood Pressure 134/95 H 06/28/25 23:12 Blood Pressure Mean 108 H 06/28/25 23:12 Blood Pressure Position Sitting 06/28/25 23:12 Pulse Oximetry 88 06/28/25 23:12 Oxygen Delivery Method Room Air 06/28/25 23:12 Vital Signs Temperature 98.4 F 06/28/25 23:12 Pulse Rate 90 06/28/25 23:12 Respiratory Rate 14 06/28/25 23:12 Blood Pressure 134/95 H 06/28/25 23:12 Pulse Oximetry 88 06/28/25 23:12 Oxygen Delivery Method Room Air 06/28/25 23:12 Temperature 98.4 F 06/28/25 23:12 Pulse Rate 95 06/29/25 02:00 Respiratory Rate 16 06/29/25 03:43 Blood Pressure 131/97 H 06/29/25 01:02 Pulse Oximetry 96 06/29/25 03:43 Oxygen Delivery Method Room Air 06/29/25 03:43 Oxygen Flow Rate 2 06/28/25 23:56 MDM - Psych MDM Narrative Medical decision making narrative: Smith is a 44-year-old male with a past medical history of alcohol use disorder who presents the emergency department from home by EMS for mental health evaluation. Upon arrival patient is nontoxic appearing, afebrile, no distress. Blood pressure upon arrival 134/95, heart rate 90, oxygen 88% on room air however patient just received multiple sedating medications prior to arrival by EMS was placed on nasal cannula with improvement of oxygenation to 93%. Patient with no respiratory distress. Patient here with altered mental status most likely secondary to acute alcohol intoxication as well as sedating medications given prior to arrival by EMS. Concern for mental health concerns, reported to EMS that he wanted to shoot himself and had a gun in his closet. At this time will obtain comprehensive labs, EKG, continuous monitor including pulse oximetry. Plan for behavior health assessment was patient is awake and able to participate. I reviewed EKG which demonstrates normal sinus rhythm with a ventricular rate of 79 beats per minute, normal axis, no acute ischemic change, QTC 481. No prior EKG to compare to. Comprehensive labs remarkable for white blood cell count of 2.0, hemoglobin of 13.8, anion gap slightly elevated at 19 but no no other acute metabolic or electrolyte abnormality, glucose 175, TSH normal 1.3, salicylate and acetaminophen level negative. urine drug screen negative, alcohol 0.33. Patient rested/slept and on re-evaluation patient awake, ambulating, requesting to discharge home. Patient currently denies any suicide ideation, homicide ideation, or intent of self-harm. Patient states he does not have guns at his house. I discussed with patient given concerns from his call [phone], will plan for mental health evaluation. [facility] mental health provider evaluated patient I discussed patient management with [facility]. Patient currently denies everything. Patient states that he called [phone] because he wanted someone to talk to. Patient currently denies any suicide ideation, homicidal ideation, or intent to self-harm. Thought content is not paranoid delusional. Patient states that he has family and friends that live for in feels comfortable with discharge home. Patient is able to contract for safety. At this time patient is not holdable. Plan to discharge with resources for alcohol use as well as counseling. Spoke with PD who search patient's apartment and states that he does not have a gun at his place. Police will meet patient at his residence to let him in. Patient agrees to plan. Return precautions discussed. Medical Records Attestation: I reviewed the patient's medical records. Lab Data Attestation: I reviewed the patient's lab results. Labs: Lab Results 06/28/25 06/28/25 06/29/25 Range/Units 23:08 23:21 00:00 WBC 2.05 L (4.50-11.00) K/uL RBC 4.59 (4.30-5.90) m/uL Hgb 13.8 (13.5-17.5) gm/dL Hct 41.1 (37.0-53.0) % MCV 90 (80-100) fL MCH 30 (26-34) pg MCHC 34 (32-36) gm/dL RDW Coeff of Jessy 12.4 (11.5-15.5) % Plt Count 215 (140-440) K/uL Neut % (Auto) 32.1 L (42.0-72.0) % Lymph % (Auto) 53.7 H (20-44) % [place] % (Auto) 10.2 (0.0-11.0) % Eos % (Auto) 1.0 (0.0-7.0) % Baso % (Auto) 2.0 (0.0-3.0) % Neut # (Auto) 0.70 L (1.7-7.0) K/uL Lymph # (Auto) 1.10 (0.90-2.90) K/uL Highlands # (Auto) 0.20 (0.00-0.90) K/UL Eos # (Auto) 0.00 (0.00-0.50) K/uL Baso # (Auto) 0.00 (0.00-0.30) K/uL Abs Immat Gran (auto) 0.00 (0.00-0.30) K/uL Imm/Tot Granulo (auto) 1.0 % Sodium 140 (135-149) mmol/L Potassium 3.8 (3.6-5.1) mmol/L Chloride 98 (96-114) mmol/L Carbon Dioxide 23 (20-32) mmol/L Anion Gap 19 H (7-15) mEq/L BUN 11 (5-24) mg/dL Creatinine 0.8 (0.5-1.5) mg/dL Estimated Creat Clear 120.40 Estimated GFR 111 ml/min Glucose 175 H (60-115) mg/dL Calcium 9.2 (8.4-10.6) mg/dL TSH 1.320 (0.270-4.20) uIU/mL Salicylates < 1.0 L (1.0-10) mg/dL Urine Opiates Screen Negative (Negative) Ur Oxycodone Screen Negative (Negative) Urine Methadone Screen Negative (Negative) Acetaminophen < 10.0 (10.0-30.0) ug/mL Ur Barbiturates Screen Negative (Negative) U Tricyclic Antidepress Negative (Negative) Ur Phencyclidine Scrn Negative (Negative) Ur Amphetamines Screen Negative (Negative) U Methamphetamines Scrn Negative (Negative) U Benzodiazepines Scrn Negative (Negative) Urine Cocaine Screen Negative (Negative) U Marijuana (THC) Screen Negative (Negative) Ur Drug Screen Comment See Note Ethyl Alcohol 0.33 H* (0.01-0.03) % SARS-CoV-2 (PCR) Negative SARS-CoV-2 (Negative) Discharge Plan Discharge Clinical Impression: Alcoholic intoxication, Suicidal ideation Patient Disposition: Home, Self-Care Condition: Improved Additional Instructions: Please follow-up with your primary care provider in the next few days for further evaluation and follow-up. Please call to schedule an appointment. Please drink plenty of water, avoid alcohol use. Return to the emergency department if any worsening symptoms. It was a pleasure taking care of you today. Prescriptions: No Action famotidine 40 mg tablet 40 mg PO DAILY losartan-hydrochlorothiazide 100-25 mg tablet 1 tab PO DAILY sertraline 50 mg tablet 50 mg PO DAILY rosuvastatin 20 mg tablet 20 mg PO QPM Follow Up/Referrals: González Cloud MD [Primary Care Provider, Family Practice] Stand Alone Forms: bright box Info Instructions
[2025-06-28 23:56] VITALS: O2SAT 89
[2025-06-29] VITALS (8 sets, daily range): BP systolic 122–145; BP diastolic 95–133; PULSE 89–103; RESP 16–22; TEMP 36.9; O2SAT 93–97
[2025-06-29 00:03] LABS: SARS PCR* Negative SARS-CoV-2 (Negative)
[2025-06-29 00:22] LABS: Ethanol* 0.33 % (0.01-0.03)
--- OUTSIDE RECORDS SUMMARY | 2025-06-29 00:23 | XMS_ITS | Clinical Summary ---
Author Organization [employer] Address [address] [place] [address] Care Team Providers Care Greenskeeper Supervisor Name Role Phone González Cloud MD Primary Care Provider +1- [phone] Allergies No known active allergies Medications rosuvastatin [...] Description 06/24/2025 3:00 PM CDT Office Visit [facility] [address] [place] [address] Angle Burton MD Back Pain (lower back and up the sides with bruising ); Trauma (06/13); Neck Injury (stiff neck ) 06/24/2025 Travel 06/17/2025 4:45 PM CDT - 06/17/2025 11:31 PM CDT Emergency [facility] [address] [place] [address] Ajit Wallis MD Alcoholic intoxication without complication (Primary Dx); Suicidal thoughts Discharge Disposition: Home Self Care 06/17/2025 Travel 05/30/2025 Refill [facility] [address] [place] [address] González Cloud MD Refill Request (Rosuvastatin, Famotidine, [...] on file 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 Dictated by Frances Nbole MD @ 06/17/2025 6:20:12 PM (Electronically Signed) Ajit Wallis MD GENERAL IMAGING [facility] al Result * (ABNORMAL) LIPID PANEL (01/02/2024 4:30 PM CDT) CHOLESTEROL,TOTAL 154 100 - 199 mg/dL 01/03/2024 2:30 PM CDT [facility] Comment: Cholesterol, Total Reference Ranges Desirable <200 mg/dL Borderline 200-239 mg/dL High >=240 mg/dL TRIGLYCERIDES 153(H) <150 mg/dL 01/03/2024 2:30 PM CDT [facility] HDL CHOLESTEROL 58 >40 mg/dL 2:30 PM CDT [facility] NON-HDL CHOLESTEROL 96 <145 mg/dl 01/03/2024 2:30 PM CDT [facility] CHOL/HDL RATIO 2.66 <4.50 01/03/2024 2:30 PM CDT [facility] LDL CHOLESTEROL 65 <=130 mg/dL 01/03/2024 2:30 PM CDT [facility] VLDL CHOLESTEROL 31(H) <=30 mg/dL 01/03/2024 2:30 PM CDT [facility] PROVIDER ORDERED STATUS RANDOM 01/03/2024 2:30 PM CDT [facility] Blood BLOOD SPECIMEN / Unknown Venipuncture / Unknown 01/02/2024 4:30 PM CDT 01/02/2024 4:31 PM CDT us González Cloud MD CHEMISTRY Final Resu lt [facility] [address] [place] [address], [place] * LC HCV ANTIBODY RFX TO QUANT PCR (04/07/2023 3:07 PM CDT) HCV Ab Non Reactive Non Reactive 04/12/2023 3:08 AM CDT [facility] ([facility]) Blood BLOOD SPECIMEN / Unknown Venipuncture / Unknown 04/07/2023 3:07 PM CDT 04/07/2023 3:09 PM CDT Narrative [facility] ([facility]) - 04/12/2023 3:08 AM CDT Performed at: [address] [place] [id number] Manager E Commerce: Corey Keys MD, Phone: [phone] us Caterina Hayes DO LABORATORY Final Result [facility] ([facility]) [address] [place] [address], * LC HIV-1/O/2, 4TH GENERATION (04/07/2023 3:07 PM CDT) HIV Scr 4th Gen Non Reactive Non Reactive 04/12/2023 1:08 AM CDT [facility] ([facility]ET) Comment: HIV Negative HIV-1/HIV-2 antibodies and HIV-1 p24 antigen were NOT detected. There is no laboratory evidence of HIV infection. Blood BLOOD SPECIMEN / Unknown Venipuncture / Unknown 04/07/2023 3:07 PM CDT 04/07/2023 3:09 PM CDT Narrative [facility] ([facility]) - 04/12/2023 1:08 AM CDT Performed at: [address] [place] [id number] Manager E Commerce: Corey Keys MD, Phone: [phone] us Caterina Hayes DO LABORATORY Final Result [facility] ([facility]) [address] [place] [address], from Last 3 Months or Most Recently Relevant to Health Maintenance Insurance [facility] ESIS [facility] [employer] [facility] [employer] COMP on file Care Teams Greenskeeper Supervisor Relationship Specialty Start Date End Date González Cloud MD [address] [place] [address] PCP - General Family Practice 08/24/15
--- NOTE | 2025-06-29 04:39 | PC.NURSE ---
Written and verbal D/C per MD and RN. Pt able to dress self, taking po and gait steady. [facility] here for transport and voucher provided. He instructed and written on discharge paper to call [employer] when he gets to apartment so they can bring him keys for apartment. Able to charge his phone to 10%.
== END 2025-06-29 04:45 | disposition home or self-care (01) ==
PROVIDERS: Emergency Provider Emergency Medicine; PCP Surgery
DX: R45.851 Suicidal ideations (principal); F10.129 Alcohol abuse with intoxication, unspecified; R41.82 Altered mental status, unspecified
CPT/HCPCS: 36415; 80048; 80143; 80179; 80306; 82077; 84443; 85025; 87635; 93005; 99284; 99285

== ENCOUNTER 2025-07-18 10:28 | Outpatient (CLI) | payer BC, SELFPAY | END 2025-07-18 10:29 | disposition home or self-care (01) | LOC: AMB 07-22 11:09 | PROVIDERS: PCP Surgery; Visit Provider Student in an Organized Health Care Education/Training Program | DX: R10.9 Unspecified abdominal pain (principal); R11.0 Nausea | CPT/HCPCS: A0425; A0429 ==

== ENCOUNTER 2025-07-18 10:45 | Emergency (ER) | payer BC, SELFPAY ==
--- OUTSIDE RECORDS SUMMARY | 2025-07-18 10:47 | XMS_ITS | Clinical Summary ---
Author Organization [employer] Address [address] [place] [address] Care Team Providers Care Live Source Operator Name Role Phone González Cloud MD Primary Care Provider +1- [phone] Allergies No known active allergies Medications rosuvastatin (CRESTOR) 20 mg tabletIndications: Mixed hyperlipidemia,Hyp erlipidemia, unspecified hyperlipidemia type TAKE ONE TABLET BY MOUTH EVERY DAY AT BEDTIME 90 Tablet 5 Active famotidine (PEPCID) 40 mg tabletIndications: Chronic GERD TAKE ONE TABLET BY MOUTH ONCE EVERY DAY . 90 Tablet 5 Active losartan-hydrochlo rothiazide (HYZAAR) 100-25 mg tabletIndications: Hypertension, unspecified type TAKE ONE TABLET BY MOUTH ONCE EVERY DAY 90 Tablet 5 Active sertraline (ZOLOFT) 100 mg tabletIndications: Depression, major, single episode, moderate (HC) Take 1 Tablet (100 mg) by mouth once daily. 90 Tablet 1 5 Active losartan-hydrochlo rothiazide, 50-12.5 mg, (HYZAAR) 50-12.5 mg tabletIndications: Hypertension, unspecified type Take 1 Tablet by mouth once daily. 90 Tablet 3 3 06/24/20 25 Discontin ued(*Med complete/ Regimen complete/ Level of care change) sertraline (ZOLOFT) 50 mg tabletIndications: Depression, major, single episode, moderate (HC) Take 1 Tablet (50 mg) by mouth once daily. 90 Tablet 5 06/24/20 25 Discontin ued(Reord er (E-cancel not sent)) Active Problems Problem Noted Date Diagnosed Date Tobacco dependence 06/14/2021 Hypertension Chronic GERD Encounters Date Type Department Care Team Description 07/18/2025 9:50 AM CDT Office Visit [facility] [address] [place] [address] Yesica Hilario MD Abdominal Pain 07/18/2025 Travel 06/24/2025 3:00 PM CDT Office Visit [facility] [address] [place] [address] Angle Burton MD Back Pain (lower back and up the sides with bruising ); Trauma (06/13); Neck Injury (stiff neck ) 06/24/2025 Travel 06/17/2025 4:45 PM CDT - 06/17/2025 11:31 PM CDT Emergency [facility] [address] [place] [address] Ajit Wallis MD Alcoholic intoxication without complication (Primary Dx); Suicidal thoughts Discharge Disposition: Home Self Care 06/17/2025 Travel 05/30/2025 Refill [facility] [address] [place] [address] González Cloud MD Refill Request (Rosuvastatin, Famotidine, Losartan-hydrochlorot hiazide, Sertraline) from Last 3 Months Immunizations Immunization Administration Dates Next Due COVID-19 vaccine (Nina-J&J) JOANNE NIELSEN COVID-19 vaccine (Moderna 100mcg/0.5mL) PF MDV 10/11/2021 COVID-19 vaccine (Moderna 50 mcg/0.5mL) [...] Types Packs/Day Years Used Date Smoking Tobacco: Former Cigarettes 0.2 16 0 06/29/2009 - 06/29/2019 Smokeless Tobacco: Never Tobacco Cessation:Counseling Given: Not Answered Comments:2 cigs daily Alcohol Use Standard Drinks/Week Comments Yes 14 (1 standard drink = 0.6 oz pu re alcohol) 1-2 daily PHQ-2 Answer Date Recorded PHQ-2 TOTAL SCORE 1 06/24/2025 Social Connections Answer Date Recorded Do you often feel lonely or isolated from those around you? 0 06/24/2025 Alcohol Use Answer Date Recorded How often do you have a drink containing alcohol ? 1 07/18/2025 How many drinks containing a lcohol do you have on a typical day when you are drinking? 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 Gender Identity Not on file Sexual Orientation Not on file Obstetrics History Last Filed Vital Signs Vital Sign Reading Time Taken Comments Blood Pressure 134/84 07/18/2025 9:52 AM CDT Pulse 123 07/18/2025 9:52 AM CDT Temperature 37.3 C (99.1 F) 06/17/2025 4:56 PM CDT Respiratory Rate 20 06/17/2025 4:56 PM CDT Oxygen Saturation 97% 07/18/2025 9:52 AM CDT Inhaled Oxygen Concentration - - Weight 84.1 kg (185 lb 8 oz) 06/24/2025 2:44 PM CDT Height 170.2 cm (5' 7) 06/17/2025 7:58 PM CDT Body Mass Index 29.05 06/17/2025 7:58 PM CDT Plan of Treatment Upcoming Encounters Date Type Department Care Team (Late st Contact Info) Description 07/25/2025 2:50 PM CDT Office Visit [facility] [address] [place] [address] González Cloud MD [address] [place] [address] Health Maintenance Due Date Last Done Comments Hepatitis B series for 19+ ( 1 of 3 - 19+ 3-dose series) 1998 HPV series for age 9-45 (1 - 3-dose SCDM series) 2006 BMI (ht and wt on same day) for age 18+ 04/07/2024 04/07/2023, 02/15/2022, 06/14/2021, Additional history exists Colonoscopy through age 75 2024 COVID-19 vaccine series ( season) 2025 12/21/2022, 09/16/2022, 10/11/2021, Additional history [...] For Patients: As a result of the 21st Century Cures Act, medical imagingexams and procedure reports [...] (Electronically Signed) Ajit Wallis MD GENERAL IMAGING Fin al Result * (ABNORMAL) LIPID PANEL (01/02/2024 4:30 PM CDT) CHOLESTEROL,TOTAL 154 100 - 199 mg/dL 01/03/2024 2:30 PM CDT [facility] Comment: Cholesterol, Total Reference Ranges Desirable <200 mg/dL Borderline 200-239 mg/dL High >=240 mg/dL TRIGLYCERIDES 153(H) <150 mg/dL 01/03/2024 2:30 PM CDT [facility] HDL CHOLESTEROL 58 >40 mg/dL 2:30 PM CDT [facility] TR[facility] LAB[facility] NON-HDL CHOLESTEROL 96 <145 mg/dl 01/03/2024 2:30 PM CDT [facility] CHOL/HDL RATIO 2.66 <4.50 01/03/2024 2:30 PM CDT [facility] LDL CHOLESTEROL 65 <=130 mg/dL 01/03/2024 2:30 PM CDT [facility] TR[facility] LAB[facility]ORY VLDL CHOLESTEROL 31(H) <=30 mg/dL 01/03/2024 2:30 PM CDT [facility] TRAL LABORATORY PROVIDER ORDERED STATUS RANDOM 01/03/2024 2:30 PM CDT [facility] TR[facility]ORY Blood BLOOD SPECIMEN / Unknown Venipuncture / Unknown 01/02/2024 4:30 PM CDT 01/02/2024 4:31 PM CDT us González Cloud MD CHEMISTRY Final Resu lt [facility] [address] [place] [address], [place] * LC HCV ANTIBODY RFX TO QUANT PCR (04/07/2023 3:07 PM CDT) HCV Ab Non Reactive Non Reactive 04/12/2023 3:[address] [facility] TEST[facility] ([facility]ET) Blood BLOOD SPECIMEN / Unknown Venipuncture / Unknown 04/07/2023 3:07 PM CDT 04/07/2023 3:09 PM CDT Narrative [facility] (CET) - 04/12/2023 3:08 AM CDT Performed at: [address] [place] [id number] Limehouse Worker: Corey Keys MD, Phone: [phone] us Caterina Hayes DO LABORATORY Final Result [facility] ([facility]) [facility] [place] [address], [place] * LC HIV-1/O/2, 4TH GENERATION (04/07/2023 3:07 PM CDT) Pathologist [facility] HIV Scr 4th Gen Non Reactive Non Reactive 04/12/2023 1:08 AM CDT [facility] (CET) Comment: HIV Negative HIV-1/HIV-2 antibodies and HIV-1 p24 antigen were NOT detected. There is no laboratory evidence of HIV infection. Blood BLOOD SPECIMEN / Unknown Venipuncture / Unknown 04/07/2023 3:07 PM CDT 04/07/2023 3:09 PM CDT Narrative [facility] (CET) - 04/12/2023 1:08 AM CDT Performed at: [address] [place] [id number] Limehouse Worker: Corey Keys MD, Phone: [phone] us Caterina Ehzane LEE LABORATORY Final Result [facility] ([facility]) [facility] [place] [address], [place] from Last 3 Months or Most Recently Relevant to Health Maintenance Insurance [facility] [employer] COMP on file Care Teams Live Source Operator Relationship Specialty Start Date End Date González Cloud MD [address] [place] [address] PCP - General Family Practice 08/24/15
[2025-07-18 10:54] VITALS: BP 145/105; PULSE 105; RESP 18; TEMP 36.7; O2SAT 96; BMI 29.0
--- NOTE | 2025-07-18 11:12 | ED.GENADULT ---
HPI - General Adult General Chief complaint: Abdominal Pain Stated complaint: Abdominal pain Time Seen by Provider: 07/18/25 10:52 Source: patient Mode of arrival: ambulatory Limitations: no limitations History of Present Illness HPI narrative: 44-year-old male presenting today with abdominal pain present for 3 days. Pain is located in the epigastric region and radiates both to the left than the right. He dry heaves periodically but does not vomit. He has been eating and drinking his usual amount of food. He denies diarrhea or constipation. States that his last bowel movement was yesterday. He denies any blood in his stool. He denies any dark or tarry stools. He denies any difficulty with urination. He denies any blood in his urine. He denies increased urinary frequency or urgency. He denies fevers or chills. Patient is passing gas regularly. Nothing makes the pain better or worse. It does not keep him up at night. Patient has history of hypertension, hyperlipidemia, alcohol use disorder, depression. Related Data Home Medications ?Medication ?Instructions ?Recorded ?Confirmed famotidine 40 mg tablet 40 mg PO DAILY 01/24/25 07/18/25 losartan 100 1 tab PO DAILY 01/24/25 07/18/25 mg-hydrochlorothiazide 25 mg tablet rosuvastatin 20 mg tablet 20 mg PO QPM 01/24/25 07/18/25 sertraline 50 mg tablet 50 mg PO DAILY 01/24/25 07/18/25 Allergies Allergy/AdvReac Type Severity Reaction Status Date / Time No Known Drug Allergies Allergy Verified 07/18/25 10:54 Review of Systems Status of ROS: Reports: 10 or more systems reviewed and unremarkable except as noted in History and below [facility] Social History Smoking Status: Current every day smoker How many standard drinks containing alcohol do you have on a typical day: 10 or more AUDIT-C Alcohol total score: 4 Non-prescribed substance use: denies use Exam Narrative: Exam Narrative: Well-nourished well-developed patient in no acute distress although he does appear slightly anxious. Alert and oriented. Answers questions appropriately. Thoughts are goal oriented and rational. No tangential or magical thinking noted. Patient speaks in full sentences without needing to catch his breath. HEENT: Normocephalic atraumatic. Pupils are equally round reactive to light. Extraocular muscles are intact. Conjunctivae are moist without any icterus noted. Moist mucous membranes. Posterior pharynx is normal. Cardiovascular: Heart is regular rate and rhythm S1 and S2 are present without any murmurs. I rechecked his pulse at this time and it was 92. Lungs: Clear to auscultation bilaterally no wheezes rhonchi or rales are appreciated. Patient takes deep breaths without any discomfort. Abdomen: Soft and mildly distended with normal bowel sounds. He does not have any guarding or rebound tenderness. He does not have a surgical abdomen. He does have epigastric tenderness. Negative Ibrahim sign. No suprapubic tenderness, no pain at McBurney's point. Extremities: Bilateral lower extremities are without edema. Skin: Well perfused. Const: Vital Signs, click to edit/add: Vital Signs - 24 hr 07/18/25 10:54 Temperature 98.1 F Pulse Rate [Pulse Oximeter] 105 H Respiratory Rate 18 Blood Pressure [Ri ght Upper Arm] 145/105 H Pulse Oximetry 96 Oxygen Delivery Me thod Room Air Course Course ED Course: I discussed with patient that we should do some blood work to rule out things like pancreatitis, appendicitis or hepatitis. He could potentially have an ulcer. Discussed possibility of gallstones. Less likely but not impossible perforated ulcer, ischemic bowel or small-bowel obstruction. Patient asked how long this process would take and I said around 2 hours. Patient stated that he needed to be somewhere right now and asked if he could leave. He states that he was seen by line of this morning they could get him in for CT scan later in the afternoon and he would prefer to do that as at this moment he needs to go somewhere. We discussed that he was hemodynamically stable and that if he felt that he was comfortable and his pain was managed enough to go about his day and not be evaluated, that he could do that. Vital Signs Vital signs: Initial Vital Signs Temperature 98.1 F 07/18/25 10:54 Temperature Source Temporal Artery Scan 07/18/25 10:54 Pulse Rate 105 H 07/18/25 10:54 Pulse Rhythm Regular 07/18/25 10:54 Respiratory Rate 18 07/18/25 10:54 Blood Pressure 145/105 H 07/18/25 10:54 Blood Pressure Mean 118 H 07/18/25 10:54 Pulse Oximetry 96 07/18/25 10:54 Oxygen Delivery Method Room Air 07/18/25 10:54 Vital Signs Temperature 98.1 F 07/18/25 10:54 Pulse Rate 105 H 07/18/25 10:54 Respiratory Rate 18 07/18/25 10:54 Blood Pressure 145/105 H 07/18/25 10:54 Pulse Oximetry 96 07/18/25 10:54 Oxygen Delivery Method Room Air 07/18/25 10:54 Temperature 98.1 F 07/18/25 10:54 Pulse Rate 105 H 07/18/25 10:54 Respiratory Rate 18 07/18/25 10:54 Blood Pressure 145/105 H 07/18/25 10:54 Pulse Oximetry 96 07/18/25 10:54 Oxygen Delivery Method Room Air 07/18/25 10:54 Medical Decision Making MDM Narrative Medical decision making narrative: 44-year-old male with abdominal pain. He refused further management or workup. Discharge Plan Discharge Clinical Impression: Abdominal pain Patient Disposition: Home, Self-Care Condition: Stable Additional Instructions: I do recommend further evaluation for your abdominal pain. Prescriptions: No Action famotidine 40 mg tablet 40 mg PO DAILY losartan-hydrochlorothiazide 100-25 mg tablet 1 tab PO DAILY sertraline 50 mg tablet 50 mg PO DAILY rosuvastatin 20 mg tablet 20 mg PO QPM Follow Up/Referrals: González Cloud MD [Primary Care Provider, Family Practice] Stand Alone Forms: [facility] Info Instructions
--- NOTE | 2025-07-18 11:13 | PC.NURSE ---
per MD pt does not wish to stay for evaluation, pt states, I didn't think it was going to take that long, pt left ED ambulatory, steady on feet
== END 2025-07-18 11:28 | disposition home or self-care (01) ==
PROVIDERS: Emergency Provider Family Medicine; PCP Surgery
DX: R10.13 Epigastric pain (principal)
CPT/HCPCS: 99283